=== PATIENT | female | born 1975 | race Caucasian/White ===

== ENCOUNTER 2018-02-13 11:07 | Inpatient (IN) | payer MEDICARE, OTHER ==
[~2018-02-13] VITALS: Ht 167.6 cm; Wt 52.2 kg
[2018-02-13] MEDS ORDERED: TOPI100T38 PO (11:27)
[2018-02-13] MEDS ORDERED: BUSP30TA2 PO (11:27)
[2018-02-13] MEDS ORDERED: DULO30CA2 PO (11:27)
--- NOTE | 2018-02-13 11:30 | NUR ---
DR GARCIA AT THE BEDSIDE FOR EVAL AND EXAM.
[2018-02-13] MEDS ORDERED: VANCOMYCIN IV 1,000 MG in IV DEXTROSE 5% 250 ML IV ONE (11:45)
[2018-02-13] MEDS ORDERED: TDAP DIPH,PERTUSS,TET VAC/PF 0.5 ML DISP.SYRIN IM ONE ×2 (11:45→11:51)
[2018-02-13] MEDS ORDERED: PIPERACILLIN SODIUM/TAZOBACTAM 3.375 G in IV DEXTROSE 5% 50 ML IV ONE (11:45)
[2018-02-13] MEDS ORDERED: NEOMY/BACITRA/POLYMYXIN B OINT UD PACKET TP ONE ×2 (11:45→11:51)
[2018-02-13] MEDS ORDERED: IV NORMAL SALINE 1000 ML BAG IV ONE (11:45)
[2018-02-13] MEDS ORDERED: PIPERACILLIN/TAZOBACTAM/D5W 50 ML IV ONE (11:51)
[2018-02-13] MEDS ORDERED: VANCOMYCIN IV 200 ML ONE (11:51)
[2018-02-13 11:59] LABS: HEMOGLOBIN 13.2 g/dL (10.9-14.3); LYMPHOCYTES # (AUTO) 0.5 K/uL (20.0-40.0); MONOCYTES # (AUTO) 0.4 K/uL (2.0-10.0); PLATELET COUNT (AUTO) 149 K/uL (179-408)
[2018-02-13 12:10] LABS: BILIRUBIN,DIRECT 0.2 mg/dL (0.0-0.2); BILIRUBIN,TOTAL 0.6 mg/dL (0.2-1.0); CREATININE 0.6 mg/dL (0.6-1.3); POTASSIUM 3.6 mmol/L (3.5-5.1); TOTAL PROTEIN, SERUM 6.7 g/dL (6.4-8.2)
[2018-02-13 12:20] LABS: BASOPHILS % (AUTO) 0.4 % (0.0-2.0); EOSINOPHILS % (AUTO) 0.3 % (0.0-7.0); HEMATOCRIT 38.7 % (31.2-41.9); LYMPHOCYTES % (AUTO) 12.7 % (20.5-51.5); MEAN CORPUSCULAR HGB CONC 34 g/dL (32.3-35.6); MONOCYTES % (AUTO) 10.2 % (0.0-11.0); NEUTROPHILS # (AUTO) 3.2 K/uL (1.8-8.9); NEUTROPHILS % (AUTO) 76.4 % (38.5-71.5); RED BLOOD CELL COUNT(AUTO) 3.62 MIL/uL (3.63-4.92); WHITE BLOOD COUNT (AUTO) 4.2 K/uL (3.8-11.8)
[2018-02-13 12:20] LABS: *URINE HCG, QUAL NEGATIVE (NEGATIVE)
[2018-02-13 12:22] LABS: MEAN CORPUSCULAR HEMOGLOBIN 36.4 uug (24.7-32.8); MEAN CORPUSCULAR VOLUME 106.9 fL (75.5-95.3)
[2018-02-13] MEDS ORDERED: KETOROLAC TROMETHAMINE 30 MG INJ IVP ONE (12:30)
[2018-02-13] MEDS ORDERED: KETOROLAC TROMETHAMINE 30 MG INJ ONE (12:31)
[2018-02-13] MEDS ORDERED: ACETAMINOPHEN 325 MG TABLET PO PRN (13:45)
[2018-02-13] MEDS ORDERED: ONDANSETRON 4 MG/2 ML VIAL IV PRN (13:45)
--- NOTE | 2018-02-13 15:02 | NUR ---
PT IS RESTING IN BED TALKING ON THE PHONE, STAES PAIN OF LT EAR IS BETTER.
--- NOTE | 2018-02-13 15:09 | NUR ---
Clinical Pharmacy Note: Vancomycin Dosing per Pharmacy Subjective: Vancomycin IV to start on this 42 yo female patient for suspected infection (waiting for MD notes). Patient received vanco 1gm IVPB x1 today in ED at 1300. Objective: BUN 8/Scr 0.6 WBC 4.2 Temperature 98.6 Assessment/Plan: Will start vancomycin 750mg IVPB Q11hr for a predicted vancomycin steady state trough level of 15 mcg/ml. 1st dose is due on 02/14 at midnight. Will draw a vancomycin trough level prior to the 4th dose of vancomycin (not ordered yet). Will monitor renal function and adjust vancomycin dose, if needed, should renal function change significantly. Will follow daily.
--- NOTE | 2018-02-13 15:45 | NUR ---
RECIEVED REPORT FROM TANA MAXWELL.
--- NOTE | 2018-02-13 16:00 | NUR ---
ADMIT PT TO RM 208, A 42YO FEMALE WITH LACERATION OF THE LEFT EAR SECONDARY TO MECHANICAL FALL. AWAKE AND ORIENTEDX3. WOUND ON LEFT EAR IS OPEN TO AIR. NO BLEEDING OR DARAINAGE NOTED. PT IS AMBULATORY AND VERY COOPERATIVE. CONDITION STABLE
[2018-02-13 16:15] VITALS: BP 103/71
[2018-02-13] MEDS: HYDROCODONE/APAP 5-325MG TABLET PO PRN (16:28)
[2018-02-13] MEDS ORDERED: busPIRone 5 MG TABLET PO SCH (17:00)
--- NOTE | 2018-02-13 17:00 | NUR ---
MEDICATED WITH NORCO 5/375 ORALLY FOR C/O PAIN.
--- NOTE | 2018-02-13 18:00 | NUR ---
PT ATE GOOD DINNER.
--- NOTE | 2018-02-13 19:20 | NUR ---
Patient back from X-ray unit.
[2018-02-13] MEDS: TOPIRAMATE 100 MG TABLET PO SCH (19:47)
[2018-02-13 20:00] VITALS: BP 110/74
[2018-02-13] MEDS: HYDROCODONE/APAP 10-325 MG TABLET PO PRN (20:01)
[2018-02-13] MEDS: IV NS 1000 ML 1,000 ML IV PRN (20:01)
--- NOTE | 2018-02-13 21:00 | NUR ---
Patient awake & alert no SOB denies chest pain. Still c/o left ear discomfort. Left ear remains swollen, see picture in chart. Vital signs WNL. Medicated for pain PRN.
[2018-02-13] MEDS: PIPERACILLIN/TAZOBACTAM/D5W 3.375 G in PREMIXED 1 EACH IV SCH (21:40)
[2018-02-13] MEDS: TEMAZEPAM 15 MG CAPSULE PO PRN (21:44)
--- NOTE | 2018-02-13 23:00 | NUR ---
Sleeping medication (Restoril 15mg) provided per patient request. Effective result noted, patient resting comfortably at this time, kept call light within reach.
[2018-02-13] MEDS: VANCOMYCIN IV 750 MG in IV DEXTROSE 5% 250 ML IV SCH (23:21)
[2018-02-14 04:00] VITALS: BP 107/75
[2018-02-14] MEDS: HYDROCODONE/APAP 10-325 MG TABLET PO PRN ×3 (05:19→19:49)
[2018-02-14] MEDS: PIPERACILLIN/TAZOBACTAM/D5W 3.375 G in PREMIXED 1 EACH IV SCH ×3 (05:19→22:58)
[2018-02-14] MEDS: PANTOPRAZOLE SODIUM 40 MG TABLET.DR PO SCH (06:13)
--- NOTE | 2018-02-14 06:35 | NUR ---
Patient fairly rested, no acute resp distress. Patient still c/o on & off left ear pain. Vital signs WNL. Medicated for pain PRN
[2018-02-14 06:39] LABS: BASOPHILS % (AUTO) 0.4 % (0.0-2.0); EOSINOPHILS % (AUTO) 1.3 % (0.0-7.0); HEMATOCRIT 31.6 % (31.2-41.9); HEMOGLOBIN 10.9 g/dL (10.9-14.3); LYMPHOCYTES # (AUTO) 0.6 K/uL (20.0-40.0); MEAN CORPUSCULAR HEMOGLOBIN 37.1 uug (24.7-32.8); MEAN CORPUSCULAR HGB CONC 35 g/dL (32.3-35.6); MEAN CORPUSCULAR VOLUME 107.3 fL (75.5-95.3); MONOCYTES # (AUTO) 0.3 K/uL (2.0-10.0); MONOCYTES % (AUTO) 12.1 % (0.0-11.0); NEUTROPHILS # (AUTO) 1.7 K/uL (1.8-8.9); NEUTROPHILS % (AUTO) 65.2 % (38.5-71.5); PLATELET COUNT (AUTO) 109 K/uL (179-408); RED BLOOD CELL COUNT(AUTO) 2.94 MIL/uL (3.63-4.92); WHITE BLOOD COUNT (AUTO) 2.6 K/uL (3.8-11.8)
[2018-02-14 06:44] LABS: CREATININE 0.7 mg/dL (0.6-1.3); MAGNESIUM 1.4 mg/dL (1.8-2.4); PHOSPHOROUS 3.8 mg/dL (2.5-4.9); POTASSIUM 3.4 mmol/L (3.5-5.1)
--- NOTE | 2018-02-14 07:20 | NUR ---
Bedside shift report given by nightshift RN. Pt admitted for Left ear laceration and cellulitis. Rec'd pt in bed awake, A&O x4. On RA, no SOB noted. Appears comfortable, watching tv and waiting for breakfast. Left wrist 20g IV patent and intact, infusing NS @ 75ml/hr. Left ear noted with redness and slight swelling. No active bleeding noted. Per pt, her left ear feels sore at this time. Receiving Zosyn and Vancomycin IV. No adverse side effects noted. All needs met at this time. Call light within reach. Oriented to board. All needs met at this time. Will continue to monitor for change.
[2018-02-14 08:03] LABS: EOSINOPHILS % (MANUAL) 1 % (0-8); LYMPHOCYTES % (MANUAL) 24 % (20-40); MONOCYTES % (MANUAL) 9 % (2-10); NEUTROPHILS % (MANUAL) 66 % (42-75)
[2018-02-14] MEDS: TOPIRAMATE 100 MG TABLET PO SCH ×2 (09:06→19:49)
[2018-02-14] MEDS: HYDROCODONE/APAP 5-325MG TABLET PO PRN (09:12)
[2018-02-14] MEDS: VANCOMYCIN IV 750 MG in IV DEXTROSE 5% 250 ML IV SCH ×2 (10:31→22:59)
[2018-02-14] MEDS: IV NS 1000 ML 1,000 ML IV PRN (10:32)
--- NOTE | 2018-02-14 10:46 | NUR ---
Pt seen and examined by Dr. Chang for Neurology consult with no new orders at this time. Pt made aware.
--- NOTE | 2018-02-14 11:06 | NUR ---
Rec'd call from Tonny Cardenas to verify pt's Buspar and Cymbalta dosages that she takes at home. Spoke with mother and obtained contact info for [facility] where pt is followed by Dr. Falcon (Psych) at [facility]. Per Bhavani RN, pt is on Cymbalta DR 90mg cap Daily and Buspar 30mg PO BID. Relayed to Tonny Cardenas.
[2018-02-14] MEDS: DULOXETINE 30 MG CAPSULE.DR PO SCH (11:11)
[2018-02-14] MEDS: busPIRone 10 MG TABLET PO SCH ×2 (11:11→16:39)
[2018-02-14 11:36] VITALS: BP 100/71
[2018-02-14] MEDS ORDERED: POTASSIUM CHLORIDE 20 MEQ TAB.PRT.SR PO ONE (12:00)
--- NOTE | 2018-02-14 12:00 | NUR ---
Seen and examined by RENARD Gibbs for wound/plastic surgery consult. New order for treatment to L ear noted. Pt made aware.
[2018-02-14] MEDS: MAGNESIUM SULFATE/D5W 100 ML IV SCH ×4 (12:06→16:38)
--- NOTE | 2018-02-14 12:41 | NUR ---
Seen and examined by Dr. Falcon (Psychiatrist) with no new orders at this time.
--- NOTE | 2018-02-14 13:43 | NUR ---
Clinical Pharmacy Note: Vancomycin Dosing per Pharmacy Subjective: Vancomycin IV to continue on this 42 yo female patient for left ear cellulitis. Objective: BUN 10/Scr 0.7 WBC 2.6 Temperature 98.1 Assessment/Plan: Will continue same dose of vancomycin 750mg IVPB Q11hr for today. 3rd dose is due today at 2200. Will draw a vancomycin trough level prior to the 4th dose of vancomycin (ordered for 02/15 at 0830). Will monitor renal function and adjust vancomycin dose, if needed, should renal function change significantly. Will follow daily.
[2018-02-14] MEDS: NEOMY/BACITRAC/POLYMI OINT 28.35 GM TUBE TOP SCH (14:19)
--- NOTE | 2018-02-14 18:54 | NUR ---
Pt continues to be in fair condition. Pt in bed watching TV. Rec'd Magnesium 4G via IV for 1.4 MG serum level as ordered. Rec'd K-Dur 20mEq via PO x1 dose as ordered for Potassium level of 3.4. Bessy well. Pt without s/s of hypokalemia noted. Pt without s/s of hypomagnesemia. Left ear treatment as ordered. Bessy well. All needs met at this time. Will endorse to incoming nurse.
--- NOTE | 2018-02-14 19:59 | NUR ---
Received patient awake no SOB denies chest pain., c/o left ear lobe pain w/ 10 pain level. Left ear swelling slightly diminished in size. Vital signs are WNL. Cascade 10/325 p.o was given. Offered night snacks, patient tolerated.
[2018-02-14 20:35] VITALS: BP 115/82
[2018-02-14] MEDS: TEMAZEPAM 15 MG CAPSULE PO PRN (22:59)
[2018-02-15 04:00] VITALS: BP 104/74
[2018-02-15] MEDS: PIPERACILLIN/TAZOBACTAM/D5W 3.375 G in PREMIXED 1 EACH IV SCH ×3 (05:49→21:20)
[2018-02-15] MEDS: PANTOPRAZOLE SODIUM 40 MG TABLET.DR PO SCH (05:50)
[2018-02-15] MEDS: HYDROCODONE/APAP 10-325 MG TABLET PO PRN (05:50)
[2018-02-15 06:29] LABS: CREATININE 0.7 mg/dL (0.6-1.3); MAGNESIUM 2.1 mg/dL (1.8-2.4); POTASSIUM 3.7 mmol/L (3.5-5.1)
--- NOTE | 2018-02-15 07:15 | NUR ---
Assisted w/ all needs. Vital signs WNL. Medicated for pain PRN.
--- NOTE | 2018-02-15 08:00 | NUR ---
AWAKE COOPERATE WELL NO ACUTE DISTRESS CONTINUE IVF ON FALL PRECAUTION CALL LIGHT IN REACH AND REMIND TO CALL WHEN NEEDED
[2018-02-15] MEDS: DULOXETINE 30 MG CAPSULE.DR PO SCH (08:16)
[2018-02-15] MEDS: TOPIRAMATE 100 MG TABLET PO SCH ×2 (08:16→19:42)
[2018-02-15] MEDS: busPIRone 10 MG TABLET PO SCH ×2 (08:20→16:50)
[2018-02-15] MEDS: NEOMY/BACITRAC/POLYMI OINT 28.35 GM TUBE TOP SCH (08:23)
[2018-02-15] MEDS: IV NS 1000 ML 1,000 ML IV PRN (09:26)
[2018-02-15] MEDS ORDERED: VANCOMYCIN IV 750 MG in IV DEXTROSE 5% 250 ML IV SCH (09:45)
[2018-02-15] MEDS: HYDROCODONE/APAP 5-325MG TABLET PO PRN ×3 (09:54→19:43)
[2018-02-15] MEDS: VANCOMYCIN IV 750 MG in IV DEXTROSE 5% 250 ML IV SCH ×2 (11:05→21:20)
[2018-02-15 11:38] VITALS: BP 101/76
--- NOTE | 2018-02-15 12:00 | NUR ---
Milagro BEATTY SEEN PATIENT AND LAB RESULT AND NEW ORDER IN CHART
[2018-02-15 12:57] LABS: BASOPHILS % (AUTO) 0.5 % (0.0-2.0); EOSINOPHILS # (AUTO) 0.1 K/uL (0.0-0.7); EOSINOPHILS % (AUTO) 1.9 % (0.0-7.0); HEMATOCRIT 36.1 % (31.2-41.9); HEMOGLOBIN 12.3 g/dL (10.9-14.3); LYMPHOCYTES # (AUTO) 0.6 K/uL (20.0-40.0); LYMPHOCYTES % (AUTO) 21.4 % (20.5-51.5); MEAN CORPUSCULAR HEMOGLOBIN 36.8 uug (24.7-32.8); MEAN CORPUSCULAR HGB CONC 34 g/dL (32.3-35.6); MEAN CORPUSCULAR VOLUME 108.3 fL (75.5-95.3); MONOCYTES # (AUTO) 0.3 K/uL (2.0-10.0); MONOCYTES % (AUTO) 8.8 % (0.0-11.0); NEUTROPHILS % (AUTO) 67.4 % (38.5-71.5); PLATELET COUNT (AUTO) 108 K/uL (179-408); RED BLOOD CELL COUNT(AUTO) 3.33 MIL/uL (3.63-4.92); WHITE BLOOD COUNT (AUTO) 2.9 K/uL (3.8-11.8)
[2018-02-15 13:50] LABS: BAND % (MANUAL) 3 % (0-10); EOSINOPHILS % (MANUAL) 1 % (0-8); LYMPHOCYTES % (MANUAL) 23 % (20-40); MONOCYTES % (MANUAL) 9 % (2-10); NEUTROPHILS % (MANUAL) 64 % (42-75)
--- NOTE | 2018-02-15 14:48 | NUR ---
Clinical Pharmacy Note: Vancomycin Dosing per Pharmacy Subjective: Vancomycin IV to continue on this 42 yo female patient for left ear infected laceration. Objective: BUN 6/Scr 0.7 WBC 2.9 Temperature 98.2 Vanco trough level: 12.1 Assessment/Plan: Since vanco trough level is 12.1 mcg/ml, will change dose of vancomycin from 750mg IVPB Q11hr to 750mg IVPB q9h for predicted vanco trough level of 16.5 mcg/ml at steady state. 1st dose is due today at 1100. Will draw a vancomycin trough level prior to the 4th dose of vancomycin (not yet ordered). Will monitor renal function and adjust vancomycin dose, if needed, should renal function change significantly. Will follow daily.
[2018-02-15 15:52] VITALS: BP 109/79
--- NOTE | 2018-02-15 17:30 | NUR ---
STABLE HEMODYNAMIC STATUS ,PAIN UNDER CONTROL RESTING WELL AND CALM AND COOPERATE SAFETY MEASURE PROVIDED CALL LIGHT IN REACH
[2018-02-15] MEDS: LACTOBACILLUS RHAMNOSUS GG 1 EACH CAPSULE PO SCH (19:43)
--- NOTE | 2018-02-15 19:53 | NUR ---
Patient awake in bed requesting [place] tab for left ear lobe pain. Left ear swelling diminished in size. No SOB noted w/ stable vital signs.
[2018-02-15 20:09] VITALS: BP 109/80
[2018-02-15] MEDS: TEMAZEPAM 15 MG CAPSULE PO PRN (21:26)
[2018-02-16] MEDS: HYDROCODONE/APAP 10-325 MG TABLET PO PRN (01:33)
[2018-02-16] MEDS: IV NS 1000 ML 1,000 ML IV PRN (02:07)
[2018-02-16 04:03] VITALS: BP 115/84
[2018-02-16] MEDS: PIPERACILLIN/TAZOBACTAM/D5W 3.375 G in PREMIXED 1 EACH IV SCH (05:12)
[2018-02-16] MEDS: PANTOPRAZOLE SODIUM 40 MG TABLET.DR PO SCH (05:12)
--- NOTE | 2018-02-16 06:58 | NUR ---
Fairly rested, no acute resp distress. Medicated for pain PRN.
[2018-02-16 07:36] LABS: BASOPHILS % (AUTO) 0.5 % (0.0-2.0); EOSINOPHILS # (AUTO) 0.1 K/uL (0.0-0.7); HEMATOCRIT 33.8 % (31.2-41.9); HEMOGLOBIN 11.5 g/dL (10.9-14.3); LYMPHOCYTES # (AUTO) 0.8 K/uL (20.0-40.0); LYMPHOCYTES % (AUTO) 25.4 % (20.5-51.5); MEAN CORPUSCULAR HEMOGLOBIN 36.9 uug (24.7-32.8); MEAN CORPUSCULAR HGB CONC 34 g/dL (32.3-35.6); MEAN CORPUSCULAR VOLUME 108.5 fL (75.5-95.3); MONOCYTES # (AUTO) 0.2 K/uL (2.0-10.0); MONOCYTES % (AUTO) 7.6 % (0.0-11.0); NEUTROPHILS # (AUTO) 1.9 K/uL (1.8-8.9); NEUTROPHILS % (AUTO) 63.5 % (38.5-71.5); PLATELET COUNT (AUTO) 98 K/uL (179-408); RED BLOOD CELL COUNT(AUTO) 3.12 MIL/uL (3.63-4.92)
--- NOTE | 2018-02-16 08:00 | NUR ---
AWAKE COOPERATE WELL CONTINUE IVF NO PAIN AT THIS TIME RESTING WITH CALL LIGHT IN REACH LEFT EAR STILL SLIGHTLY REDNESS NO DRAINAGE NOTED
[2018-02-16 08:17] LABS: BAND % (MANUAL) 7 % (0-10); EOSINOPHILS % (MANUAL) 4 % (0-8); LYMPHOCYTES % (MANUAL) 31 % (20-40); MONOCYTES % (MANUAL) 7 % (2-10); NEUTROPHILS % (MANUAL) 51 % (42-75)
[2018-02-16 08:39] LABS: ALANINE AMINOTRANSFERASE 51 U/L (14-59); ALKALINE PHOSPHATASE 115 U/L (50-136); ASPARTATE AMINOTRANSFERASE 90 U/L (15-37); BILIRUBIN,TOTAL 0.7 mg/dL (0.2-1.0); CARBON DIOXIDE 23 mmol/L (21-32); CHLORIDE 112 mmol/L (98-107); CREATININE 0.5 mg/dL (0.6-1.3); GLUCOSE 71 mg/dL (74-106); MAGNESIUM 1.4 mg/dL (1.8-2.4); PHOSPHOROUS 2.9 mg/dL (2.5-4.9); POTASSIUM 3.2 mmol/L (3.5-5.1); UREA NITROGEN, BLOOD 4 mg/dL (7-18)
[2018-02-16] MEDS: DULOXETINE 30 MG CAPSULE.DR PO SCH (08:43)
[2018-02-16] MEDS: HYDROCODONE/APAP 5-325MG TABLET PO PRN ×2 (08:43→13:17)
[2018-02-16] MEDS: LACTOBACILLUS RHAMNOSUS GG 1 EACH CAPSULE PO SCH (08:43)
[2018-02-16] MEDS: busPIRone 10 MG TABLET PO SCH (08:44)
[2018-02-16] MEDS: TOPIRAMATE 100 MG TABLET PO SCH (08:46)
[2018-02-16] MEDS: VANCOMYCIN IV 750 MG in IV DEXTROSE 5% 250 ML IV SCH (08:46)
[2018-02-16] MEDS ORDERED: MULTIVITAMINS,THERAPEUTIC TABLET PO SCH (09:00)
[2018-02-16] MEDS ORDERED: THIAMINE HCL 100 MG TABLET PO SCH (09:00)
[2018-02-16] MEDS ORDERED: FOLIC ACID 1 MG TABLET PO SCH (09:00)
[2018-02-16] MEDS: NEOMY/BACITRAC/POLYMI OINT 28.35 GM TUBE TOP SCH (09:24)
[2018-02-16] MEDS ORDERED: POTASSIUM CHLORIDE 20 MEQ TAB.PRT.SR PO ONE ×2 (10:15→12:15)
[2018-02-16] MEDS: MAGNESIUM SULFATE/D5W 100 ML IV SCH ×3 (11:07→13:08)
[2018-02-16 11:33] VITALS: BP 106/75
--- NOTE | 2018-02-16 12:00 | NUR ---
RENARD FERNANDES SEEN PATIENT AND LAB RESULT AND ORDER OK TO D/C HOME TODAY WITH PRECRIPTION
[2018-02-16] MEDS ORDERED: MAGNESIUM SULFATE/D5W 100 ML IV SCH (12:15)
[2018-02-16] MEDS ORDERED: CEPHALEXIN MONOHYDRATE 500 MG CAPSULE PO SCH (14:00)
--- NOTE | 2018-02-16 14:00 | NUR ---
D/C INSTRUCTION REGARDING F/U WITH OWN PMD CONTINUE HOME MEDICINE PRECRIPTION AND ORDER AND HL WAS DISCONTINUE PRIOR D/C HOME TODAY EDUCATION PK GAVE ,VERBALIZES UNDERSTAND AND SIGNS D/C SHEET
[2018-02-16] MEDS ORDERED: LACT1CAP57 PO (14:15)
[2018-02-16] MEDS ORDERED: NEOM28.3 TOP (14:15)
[2018-02-16] MEDS ORDERED: FOLI1TAB16 PO (14:15)
[2018-02-16] MEDS ORDERED: THIA100T13 PO (14:15)
[2018-02-16] MEDS ORDERED: MULT-24 PO (14:15)
[2018-02-16] MEDS ORDERED: ACET325T53 PO (14:15)
[2018-02-16] MEDS ORDERED: CEPH500C2 PO (14:15)
[2018-02-16] MEDS ORDERED: HYDR-3326 PO (14:15)
--- NOTE | 2018-02-16 14:30 | NUR ---
PATIENT REFUSED TO TAKE PICTURE OF LEFT EAR SMALL LACERATION WOUND ,IT WAS START HEALING AND TEACHING OF WOUND CARE GIVEN UNDERSTAND
--- NOTE | 2018-02-16 15:15 | NUR ---
PHILIP CAME AND EX[LAINED ALL HOME MEDICINE AND DR ECHEVERRIA ,VERBALIZES UNDERSTAND
[2018-02-16 15:40] VITALS: BP_SYST 110; BP_DIAS 59; BP_DIAS 74
--- NOTE | 2018-02-16 16:20 | NUR ---
D/C HOME WITH HER BELONGING ACCOMPANIES WITH AND D/C INSTRUCTION EXPPLAINED TO HER ,VERBALIZES UNDERSTAND SUPPLY AND ANTIBIOTICS OINTMENT GIVEN ,CONDITION STABLE NO PAIN
[2018-02-16] MEDS ORDERED: VANCOMYCIN IV 750 MG in IV DEXTROSE 5% 250 ML IV SCH (18:00)
== END 2018-02-16 16:25 | disposition home or self-care (01) | DRG 155 ==
LOC: ER 11:07 → MED 15:40
PROVIDERS: ADMIT Nurse Practitioner Acute Care; ATTEND Nurse Practitioner Acute Care
DX: H60.12 Cellulitis of left external ear (principal); E44.0 Moderate protein-calorie malnutrition; D69.6 Thrombocytopenia, unspecified; E83.51 Hypocalcemia; E83.42 Hypomagnesemia; F20.9 Schizophrenia, unspecified; Z68.1 Body mass index [BMI] 19.9 or less, adult; S01.312A Laceration without foreign body of left ear, initial encounter; W18.30XA Fall on same level, unspecified, initial encounter; F41.9 Anxiety disorder, unspecified; G40.909 Epilepsy, unspecified, not intractable, without status epilepticus; Y92.010 Kitchen of single-family (private) house as the place of occurrence of the external cause; F17.210 Nicotine dependence, cigarettes, uncomplicated; Z86.73 Personal history of transient ischemic attack (TIA), and cerebral infarction without residual deficits; Z87.820 Personal history of traumatic brain injury; Z87.440 Personal history of urinary (tract) infections; F51.3 Sleepwalking [somnambulism]; F31.9 Bipolar disorder, unspecified; E87.6 Hypokalemia; D72.819 Decreased white blood cell count, unspecified; R74.0 Nonspecific elevation of levels of transaminase and lactic acid dehydrogenase [LDH]; F10.20 Alcohol dependence, uncomplicated; Y90.9 Presence of alcohol in blood, level not specified; B95.8 Unspecified staphylococcus as the cause of diseases classified elsewhere
CPT/HCPCS: 36415; 70450; 71045; 83735; 84100; 84443; 84703; 85025; 85610; 87070; 90715; A4217; A4663; J1885; J2543; J3370; J3475; J7030; J7060